=== PATIENT | female | born 1995 | race Caucasian/White ===

== ENCOUNTER 2016-10-16 15:53 | Emergency (ER) | payer OTHER ==
[2016-10-16 16:04] VITALS: BMI 21.9
[2016-10-16 16:06] VITALS: TEMP 98.2
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
[2016-10-16] MEDS ORDERED: IBUPROFEN 800 MG TAB PO ONE (18:57)
[2016-10-16 20:23] VITALS: BP 120/89; PULSE 96
== END 2016-10-16 20:22 ==
LOC: ED 15:53 → EEVIPCON 15:53 → ED 20:22
DX: R56.9 Unspecified convulsions (principal)
CPT/HCPCS: 99284; J3490

== ENCOUNTER 2016-11-23 09:52 | Emergency (ER) | payer SELFPAY ==
[2016-11-23 09:52] VITALS: BMI 21.9
[2016-11-23 10:00] VITALS: TEMP 99
[2016-11-23] MEDS ORDERED: NS 1,000 ML IV ONE (10:53)
[2016-11-23] MEDS: IBUPROFEN 800 MG TAB PO ONE ×2 (11:12→11:23)
[2016-11-23 11:21] LABS: AUTOMATED BASOPHIL 0.4 % (0-2); AUTOMATED EOSINOPHIL 3.6 % (0-5); AUTOMATED LYMPH 30.4 % (17-44); AUTOMATED MONOCYTE 10.3 % (3-10); AUTOMATED NEUTROPHIL 55.3 % (45-76); MPV 7.9 fL (7.4-10.4)
[2016-11-23] MEDS ORDERED: Ibuprofen Oral Suspension 100 MG/5 ML UDC ONE (11:22)
[2016-11-23 11:38] LABS: ALL NEG? NO
[2016-11-23 11:40] LABS: BLOOD UREA NITROGEN 11 MG/DL (7-17); CALC CORRECTED 9.6 MG/DL (8.4-10.2); CALCIUM 9.4 MG/DL (8.4-10.2); CALCULATED OSMOLALITY 272 MOs/Kg (270-290); CHLORIDE 106 mEq/L (98-107); GLUCOSE 68 mg/dL (70-99); SODIUM LEVEL 143 mEq/L (137-146); TOTAL PROTEIN 7.1 G/DL (6.3-8.2)
[2016-11-23 11:46] LABS: LEUKOCYTES/URINE 2+ (NEGATIVE); NITRITE/URINE NEG (NEGATIVE); RBC/URINE 40-50 (0-5); URINE OCCULT BLOOD NEG (NEG/TRACE); WBC/URINE TNTC (0-5)
[2016-11-23 11:47] LABS: MDMA* NEG (NEGATIVE); METHAMPHETAMINES *POSITIVE* (NEGATIVE); OXYCODONE NEG (NEGATIVE)
[2016-11-23] MEDS ORDERED: TRIMETHOPRIM-SULFAMETHOXAZOLE TAB PO ONE (12:09)
[2016-11-23 12:13] VITALS: BP 116/81; PULSE 91
--- NOTE | 2016-11-23 12:17 | EDPRACDOC ---
ED Seizure HPI - General Information Chief Complaint: Seizure Stated Complaint: SEIZURE Time Seen by Provider: 11/23/16 10:26 Information Source: Patient Mode Of Arrival: Ambulance Home Medications: Home Medications Cefixime [Suprax] 500 mg PO BID #1 susp.recon 11/23/16 Divalproex Sodium [Depakote Sprinkle] 500 mg PO BID 11/23/16 Allergies/Adverse Reactions: Allergies Allergy/AdvReac Type Severity Reaction Status Date / Time No Known Allergies Allergy Verified 11/23/16 09:54 - History of Present Illness Onset: [employer] Medications/Treatment [facility] Treatment BLS IV Yes HPI: PT PRES[facility] FROM [facility] DUE TO HAVING A SEIZURE. PT HAS MULTIPLE SEIZURES OVER THE PAST COUPLE OF MONTHS SINCE SHE STATES SOMEONE BUT "BUG REPELLANT IN HER HEROIN". PT IS PRESCRIBED DEPAKOTE BUT MOTHER STATES SHE HAS MISSED SEVERAL DOSES. MOTHER STATES PT HAS HAD TWO SEIZURES THIS AM. Seizure Duration: 2-3 MINUTES Witnessed: YES Postictal: Yes Episodes: Reports: multiple episodes today Compliant with Seizure Medication: No Seizure Type: Reports: Tonic Clonic Seizure Trigger: Reports: Emotion Prior to Seizure: Reports: Normal Arousable To: Reports: Touch Immediately After Seizure: Reports: Confusion Relevant History of: Reports: Substance Abuse Associated Signs & Symptoms: Reports: Headache, Irritability - [place] Coma scale Coma Scale Eye Opening: Spontaneous Coma Scale Motor: Obeys Commands Coma Scale Verbal: Oriented Coma Scale Total: 15 - Treatment Prior to ED Arrival Reported Medications/Treatment [facility] Treatment BLS IV Yes ED Past Medical History - History Reviewed Yes Nurses notes reviewed and agree except as marked - Patient Medical History Neurological History: Reports: Seizures Psychological History: Denies: Depression - Social Medical History Smoking Status: Heavy tobacco smoker (5 or more cigarettes/day or daily pipe/ cigar) EDM Review of Systems - Review of Systems ROS Negative Except as Marked: Yes All systems reviewed and were negative except as marked - Physical Exam Constitutional: Alert Oriented to: Time, Person, Place Last recorded Vital Signs: Last Vital Signs Temp 99 F 11/23/16 09:54 Pulse 91 11/23/16 12:12 Resp 18 11/23/16 12:12 BP 116/81 11/23/16 12:12 Pulse Ox 99 11/23/16 12:12 Oxygen Pulse Oxygen Saturation 99 O2 Device Room Air Oxygen Flow Rate Fraction of Inspired Oxygen ( FIO2) - HEENT Head: Normal ( normocephalic) Eye Exam: Normal (PERRL, EOMI, Sclera white) Oropharynx: Normal (Pharynx:Moist without exudate,Gums-no swelling) Tympanic Membrane: Normal Nose: No Symptoms Reported (septum midline) Neck: Normal (FROM, trachea at midline) - Respiratory/Cardiovascular Respiratory: Normal - CTA (BBS clear to auscultation without adventitious sounds ) Cardiovascular: Tachycardia - GI Auscultation: Normal (NABS) Palpation: Normal (Soft,No rebound or guarding, non distended) Tenderness: Non tender Ervin's Sign: Negative Rectal Exam: Deferred - Musculoskeletal Back: Normal (Non-Tender) Extremities: Normal (Normal tone, Pulses 2+ No cyanosis or edema, FROM) - Integumentary Skin: Normal, Warm, Dry Lymphatics: Normal (no adenopathy) - Neurologic Memory Impaired: Normal Motor Function: Normal (Normal tone, Pulses 2+ No cyanosis or edema, FROM) Cranial Nerve: Normal (CN II-X11 intact sensation, strength 5/5) Cerebellar: Normal Mood Description: Normal Perception: Normal - Differential Diagnosis Seizure, Other - Results 11/23/16 11:08 11/23/16 11:08 WBC 8.8 xk/uL (3.8-10.8) 11/23/16 11:08 RBC 4.45 xM/uL (4.20-5.40) 11/23/16 11:08 Hgb 14.4 g/dL (12.0-16.0) 11/23/16 11:08 Hct 41.0 % (36-47) 11/23/16 11:08 MCV 92 fL (81-99) 11/23/16 11:08 MCH 32.3 pg (27-32) H 11/23/16 11:08 MCHC 35.1 g/dl (33-36) 11/23/16 11:08 RDW 13.1 % (11.5-14.5) 11/23/16 11:08 Plt Count 298 xk/uL (130-400) 11/23/16 11:08 MPV 7.9 fL (7.4-10.4) 11/23/16 11:08 Neut % (Auto) 55.3 % (45-76) 11/23/16 11:08 Lymph % (Auto) 30.4 % (17-44) 11/23/16 11:08 [place] % (Auto) 10.3 % (3-10) H 11/23/16 11:08 Eos % (Auto) 3.6 % (0-5) 11/23/16 11:08 Baso % (Auto) 0.4 % (0-2) 11/23/16 11:08 Absolute Neuts (auto) 4.84 xk/uL (1.7-8.2) 11/23/16 11:08 Absolute Lymphs (auto) 2.64 xk/uL (0.65-4.75) 11/23/16 11:08 Sodium 143 mEq/L (137-146) 11/23/16 11:08 Potassium 4.5 mEq/L (3.5-5.1) 11/23/16 11:08 Chloride 106 mEq/L (98-107) 11/23/16 11:08 Carbon Dioxide 29 mMOL/L (22-33) 11/23/16 11:08 Anion Gap 13 mEq/L (8-16) 11/23/16 11:08 BUN 11 MG/DL (7-17) 11/23/16 11:08 Creatinine 0.70 MG/DL (0.52-1.04) 11/23/16 11:08 Estimated GFR (MDRD) > 60 mL/min (>=60) 11/23/16 11:08 Glucose 68 mg/dL (70-99) L 11/23/16 11:08 Calculated Osmolality 272 MOs/Kg (270-290) 11/23/16 11:08 Calcium 9.4 MG/DL (8.4-10.2) 11/23/16 11:08 Corrected Calcium 9.6 MG/DL (8.4-10.2) 11/23/16 11:08 Total Bilirubin 0.4 MG/DL (0.2-1.3) 11/23/16 11:08 AST 19 IU/L (14-36) 11/23/16 11:08 ALT 31 IU/L (9-52) 11/23/16 11:08 Alkaline Phosphatase 62 IU/L (38-126) 11/23/16 11:08 Total Protein 7.1 G/DL (6.3-8.2) 11/23/16 11:08 Albumin 3.8 G/DL (3.5-5.0) 11/23/16 11:08 Urine Color Yellow 11/23/16 11:36 Urine Clarity Cldy 11/23/16 11:36 Urine pH 6.0 (5.0-8.0) 11/23/16 11:36 Ur Specific [place] 1.015 (1.003-1.035) 11/23/16 11:36 Urine Protein 2+ (NEG/TRACE) H 11/23/16 11:36 Urine Glucose (UA) Trace (NEGATIVE) 11/23/16 11:36 Urine Ketones 1+ (NEGATIVE) H 11/23/16 11:36 Urine Occult Blood Neg (NEG/TRACE) 11/23/16 11:36 Urine Nitrite Neg (NEGATIVE) 11/23/16 11:36 Urine Bilirubin Neg (NEGATIVE) 11/23/16 11:36 Urine Urobilinogen 2 MG/DL (0-1) H 11/23/16 11:36 Ur Leukocyte Esterase 2+ (NEGATIVE) H 11/23/16 11:36 Urine RBC 40-50 (0-5) H 11/23/16 11:36 Urine WBC Tntc (0-5) H 11/23/16 11:36 Urine WBC Clumps Present (NONE) H 11/23/16 11:36 Ur Epithelial Cells 4+ 11/23/16 11:36 Urine Bacteria 1+ (NEG/FEW) H 11/23/16 11:36 Urine Mucus Mod (NEG/OCC) H 11/23/16 11:36 Urine Test Neg (NEGATIVE) 11/23/16 11:36 Urine Opiates Screen Neg (NEGATIVE) 11/23/16 11:36 Ur Oxycodone Screen Neg (NEGATIVE) 11/23/16 11:36 Urine Methadone Screen Neg (NEGATIVE) 11/23/16 11:36 Ur Barbiturates Screen Neg (NEGATIVE) 11/23/16 11:36 Ur Tricyclics Screen *positive* (NEGATIVE) H 11/23/16 11:36 Ur Phencyclidine Scrn Neg (NEGATIVE) 11/23/16 11:36 Ur Amphetamines Screen *positive* (NEGATIVE) H 11/23/16 11:36 U Methamphetamines Scrn *positive* (NEGATIVE) H 11/23/16 11:36 Urine MDMA Screen Neg (NEGATIVE) 11/23/16 11:36 U Benzodiazepines Scrn *positive* (NEGATIVE) H 11/23/16 11:36 Urine Cocaine Screen Neg (NEGATIVE) 11/23/16 11:36 Ur THC Screen *positive* (NEGATIVE) H 11/23/16 11:36 Lab Results 11/23/16 11/23/16 11/23/16 11:36 11:36 11:36 WBC RBC Hgb Hct MCV MCH MCHC RDW Plt Count MPV Neut % (Auto) Lymph % (Auto) [place] % (Auto) Eos % (Auto) Baso % (Auto) Absolute Neuts (auto) Absolute Lymphs (auto) Sodium Potassium Chloride Carbon Dioxide Anion Gap BUN Creatinine Estimated GFR (MDRD) Glucose Calculated Osmolality Calcium Corrected Calcium Total Bilirubin AST ALT Alkaline Phosphatase Total Protein Albumin Urine Color Yellow Urine Clarity Cldy Urine pH 6.0 Ur Specific [place] 1.015 Urine Protein 2+ H Urine Glucose (UA) Trace Urine Ketones 1+ H Urine Occult Blood Neg Urine Nitrite Neg Urine Bilirubin Neg Urine Urobilinogen 2 H Ur Leukocyte Esterase 2+ H Urine RBC 40-50 H Urine WBC Tntc H Urine WBC Clumps Present H Ur Epithelial Cells 4+ Urine Bacteria 1+ H Urine Mucus Mod H Urine Test Neg Urine Opiates Screen Neg Ur Oxycodone Screen Neg Urine Methadone Screen Neg Ur Barbiturates Screen Neg Ur Tricyclics Screen *positive* H Ur Phencyclidine Scrn Neg Ur Amphetamines Screen *positive* H U Methamphetamines Scrn *positive* H Urine MDMA Screen Neg U Benzodiazepines Scrn *positive* H Urine Cocaine Screen Neg Ur THC Screen *positive* H 11/23/16 11/23/16 11:08 11:08 WBC 8.8 RBC 4.45 Hgb 14.4 Hct 41.0 MCV 92 MCH 32.3 H MCHC 35.1 RDW 13.1 Plt Count 298 MPV 7.9 Neut % (Auto) 55.3 Lymph % (Auto) 30.4 [place] % (Auto) 10.3 H Eos % (Auto) 3.6 Baso % (Auto) 0.4 Absolute Neuts (auto) 4.84 Absolute Lymphs (auto) 2.64 Sodium 143 Potassium 4.5 Chloride 106 Carbon Dioxide 29 Anion Gap 13 BUN 11 Creatinine 0.70 Estimated GFR (MDRD) > 60 Glucose 68 L Calculated Osmolality 272 Calcium 9.4 Corrected Calcium 9.6 Total Bilirubin 0.4 AST 19 ALT 31 Alkaline Phosphatase 62 Total Protein 7.1 Albumin 3.8 Urine Color Urine Clarity Urine pH Ur Specific [place] Urine Protein Urine Glucose (UA) Urine Ketones Urine Occult Blood Urine Nitrite Urine Bilirubin Urine Urobilinogen Ur Leukocyte Esterase Urine RBC Urine WBC Urine WBC Clumps Ur Epithelial Cells Urine Bacteria Urine Mucus Urine Test Urine Opiates Screen Ur Oxycodone Screen Urine Methadone Screen Ur Barbiturates Screen Ur Tricyclics Screen Ur Phencyclidine Scrn Ur Amphetamines Screen U Methamphetamines Scrn Urine MDMA Screen U Benzodiazepines Scrn Urine Cocaine Screen Ur THC Screen Decision Time to Discharge: 12:19 - Departure Disposition: Home Condition: Stable Final Diagnosis: Seizure, Polysubstance abuse Instructions: Seizures, Polysubstance Abuse (ED) Education/Counseling Given To: Patient, Family Member Education/Counseling Given Regarding: Diagnosis, Treatment, Prognosis, Follow Up Referrals: Kenyon Ernandez II, MD [Staff Physician] - One Week Prescriptions: New Cefixime [Suprax] 500 mg PO BID #1 susp.recon No Action Divalproex Sodium [Depakote Sprinkle] 500 mg PO BID Additional Instructions: INCREASE FLUID INTAKE. FOLLOW UP WITH PRIMARY CARE PROVIDER NEXT WEEK. TAKE ALL ANTIBIOTICS PRESCRIBED. RETURN TO THE ED FOR WORSENING SYMPTOMS OR CONCERNS.
[2016-11-23 14:02] LABS: VALPROIC ACID LEVEL 77.1 MCG/ML (50-100)
== END 2016-11-23 12:31 | disposition home or self-care (01) ==
LOC: ED 09:52
DX: R56.9 Unspecified convulsions (principal); F19.10 Other psychoactive substance abuse, uncomplicated
CPT/HCPCS: 36415; 80053; 80164; 80307; 81001; 81025; 85025; 96360; 99284; J3490